=== PATIENT | female | born 1995 | race Caucasian/White ===

== ENCOUNTER 2020-08-18 02:29 | Emergency (ER) | payer OTHER ==
[~2020-08-18 02:29] MED LIST: IBU600 MG PO; IBUPROFEN600 MG PO; KEFLEX CAP 500500 MG PO
[2020-08-18] MEDS ORDERED: AUGMENTIN 875-1 EACH PO (03:09)
[2020-08-18] MEDS ORDERED: IBUPROFEN800 MG PO (03:09)
== END 2020-08-18 03:20 | disposition home or self-care (01) ==
LOC: ER1 02:29
DX: K08.89 Other specified disorders of teeth and supporting structures (principal); F17.210 Nicotine dependence, cigarettes, uncomplicated
CPT/HCPCS: 96372; 99282; J1885

== ENCOUNTER 2020-10-26 09:07 | Emergency (ER) | payer OTHER ==
[~2020-10-26 09:07] MED LIST changes: +AUGMENTIN 875-1 EACH PO; +IBUPROFEN800 MG PO
== END 2020-10-26 09:50 | disposition home or self-care (01) ==
LOC: ER1 09:07
DX: S60.455A Superficial foreign body of left ring finger, initial encounter (principal); W49.04XA Ring or other jewelry causing external constriction, initial encounter
CPT/HCPCS: 99283